=== PATIENT | male | born 1940 | race Caucasian/White ===

== ENCOUNTER 2024-01-12 09:05 | Inpatient (IN) | payer OTHER ==
[~2024-01-12] VITALS: Ht 167.6 cm; Wt 86.2 kg
[2024-01-12 09:12] VITALS: BP 92/37; PULSE 91; RESP 20; TEMP 98.5; O2SAT 95
[2024-01-12] MEDS ORDERED: cefTRIAXone 1,000 MG VIAL ONE (09:46)
[2024-01-12] MEDS: NACL 0.9% 1,000 ML IV SCH ×2 (09:46→18:40)
[2024-01-12 09:49] LABS: HEMATOCRIT 36.9 % (36-52); HEMOGLOBIN 11.9 g/dL (12.0-18.0); MEAN CORPUSCULAR HEMOGLOBIN 27 pg (27-31); MEAN CORPUSCULAR HGB CONC 32 g/dL (33-37); MEAN CORPUSCULAR VOLUME 83.5 fL (80-94); PLATELET COUNT (AUTO) 134 K/uL (140-450); RED BLOOD CELL COUNT(AUTO) 4.42 MIL/uL (4.20-6.10); RED CELL DISTRIBUTION WIDTH 15.4 % (11.6-13.7); WHITE BLOOD COUNT (AUTO) 21.6 K/uL (4.8-10.8)
[2024-01-12] MEDS: cefTRIAXone 1,000 MG in DEXT 5% MINI-BAG PLUS 50 ML IV ONE (09:50)
[2024-01-12 09:58] LABS: ANION GAP 14.8 (8-16); CALCIUM 8.1 mg/dL (8.5-10.1); CARBON DIOXIDE 20.7 mmol/L (21-32); CHLORIDE 102 mmol/L (98-107); CREATININE 2.6 mg/dL (0.6-1.3); GLUCOSE 205 mg/dL (74-106); POTASSIUM 4.5 mmol/L (3.5-5.1); SODIUM SERUM 133 mmol/L (136-145); UREA NITROGEN, BLOOD 42 mg/dL (7-18)
[2024-01-12 10:07] LABS: FLU A ANTIGEN NEGATIVE (NEGATIVE); FLU B ANTIGEN NEGATIVE (NEGATIVE)
[2024-01-12 10:07] LABS: ALANINE AMINOTRANSFERASE 44 U/L (12-78); ALBUMIN 2.4 g/dL (3.4-5.0); ALKALINE PHOSPHATASE 129 U/L (50-136); ASPARTATE AMINOTRANSFERASE 24 U/L (15-37); BILIRUBIN,DIRECT 0.4 mg/dL (0.0-0.3); TOTAL PROTEIN, SERUM 5.7 g/dL (6.4-8.2)
[2024-01-12 10:10] LABS: LACTIC ACID 2.4 mmol/L (0.4-2.0)
[2024-01-12 10:16] LABS: BILIRUBIN,URINE 1+ (NEGATIVE); BLOOD, URINE 3+ (NEGATIVE); COLOR,URINE YELLOW (YELLOW); LEUKOCYTE ESTERASE ,URINE 2+ (NEGATIVE); NITRITE, URINE NEGATIVE (NEGATIVE); PH,URINE 5.5 (5.0-9.0); PROTEIN,URINE 2+ (NEGATIVE); UGLUCOSE NEGATIVE (NEGATIVE)
[2024-01-12 10:24] LABS: APPEARANCE,URINE HAZY (CLEAR)
[2024-01-12 10:29] LABS: BACTERIA,URINE 3+ /HPF (None Seen); ICTOTEST NEGATIVE (NEGATIVE); RBC,URINE 11-20 (MOD) /HPF (0-5); WBC,URINE TOO MANY TO COUNT /HPF (0-5)
[2024-01-12 10:30] LABS: MUCUS,URINE 3+ /LPF (None Seen)
[2024-01-12] MEDS: NACL 0.9% 1,000 ML IV ONE (10:47)
[2024-01-12 11:13] LABS: ANISOCYTOSIS 1+; LYMPHOCYTES % (MANUAL) 4 % (20-46); MONOCYTES % (MANUAL) 2 % (5-12); PLATELET ESTIMATE ADEQUATE; POIKILOCYTOSIS 1+
[2024-01-12 11:14] LABS: BURR CELLS 1+; OVALOCYTES 1+
[2024-01-12] MEDS ORDERED: ROPI2TAB26 PO (11:50)
[2024-01-12] MEDS ORDERED: WARF-92 PO (11:50)
[2024-01-12] MEDS ORDERED: [UNRECOGNIZED DRUG - CODE] PO (11:50)
[2024-01-12] MEDS ORDERED: RIVA15TA1 PO (11:50)
[2024-01-12] MEDS ORDERED: FURO40TA9 PO (11:50)
[2024-01-12] MEDS ORDERED: TAMS0.4C97 PO (11:50)
[2024-01-12] MEDS ORDERED: TRAM50TA3 PO (11:50)
[2024-01-12] MEDS ORDERED: [UNRECOGNIZED DRUG - CODE] OT (11:50)
[2024-01-12] MEDS ORDERED: ISOS60TE70 PO (11:50)
[2024-01-12] MEDS ORDERED: LOVA40TA5 PO (11:50)
[2024-01-12] MEDS ORDERED: TEMA15CA11 PO (11:50)
[2024-01-12] MEDS ORDERED: METO2.5T1 PO (11:50)
[2024-01-12] MEDS ORDERED: INSU-1165 SUBQ (11:50)
[2024-01-12] MEDS ORDERED: TORS20TA3 PO (11:50)
[2024-01-12] MEDS ORDERED: LINA145C PO (11:50)
[2024-01-12] MEDS ORDERED: INSU100S22 SUBQ (11:50)
[2024-01-12] MEDS ORDERED: POTA10TA81 PO (11:50)
[2024-01-12] MEDS ORDERED: CARV12.5 PO (11:56)
[2024-01-12] MEDS ORDERED: COROTSOL OT (11:56)
[2024-01-12] MEDS ORDERED: LACT-58 PO (11:56)
[2024-01-12] MEDS ORDERED: [UNRECOGNIZED DRUG - CODE] PO (11:56)
[2024-01-12] MEDS ORDERED: MULT-2253 PO (11:56)
[2024-01-12] MEDS ORDERED: MULT-2171 PO (11:56)
[2024-01-12 12:14] VITALS: O2SAT 94
[2024-01-12 13:05] VITALS: RESP 18; O2SAT 94
[2024-01-12] MEDS ORDERED: INSULIN LISPRO SLIDING SCALE 100 UNITS/ML VIAL SUBQ PRN (13:40)
[2024-01-12] MEDS ORDERED: DEXTROSE 50% 50 ML SYR IVP PRN ×2 (13:50→18:40)
[2024-01-12 16:00] VITALS: BP 123/68; PULSE 72; RESP 18; TEMP 98.1; O2SAT 97
[2024-01-12] MEDS: BLOOD GLUCOSE MONITORING 1 DEV DEV FS SCH (16:57)
[2024-01-12] MEDS: INSULIN LISPRO SLIDING SCALE 100 UNITS/ML VIAL SUBQ PRN (17:03)
[2024-01-12] MEDS ORDERED: POTASSIUM CHLORIDE 10 MEQ TABER PO PRN (18:40)
[2024-01-12] MEDS ORDERED: MAG SULF 2000 MG/WATER PREMIX 50 ML IV PRN (18:40)
[2024-01-12] MEDS ORDERED: HYDROcodone/APAP 7.5/325 MG 1 TAB PO PRN (18:40)
[2024-01-12] MEDS ORDERED: ONDANSETRON 4 MG/2 ML VIAL IVP PRN (18:40)
[2024-01-12] MEDS ORDERED: ACETAMINOPHEN 325 MG TAB PO PRN (18:40)
[2024-01-12] MEDS ORDERED: traMADol 50 MG TAB PO PRN (18:40)
[2024-01-12 19:31] VITALS: PULSE 76; RESP 21; O2SAT 97
[2024-01-12 19:39] LABS: PARTIAL THROMBOPLASTIN TIME 43.4 secs (22-35.6)
[2024-01-12 19:44] LABS: INR 4.79 (0.8-1.2)
[2024-01-12 20:00] VITALS: BP 165/60; PULSE 76; PULSE 79; RESP 21; TEMP 98.2; O2SAT 97
[2024-01-12 20:08] LABS: FREE T4 (FREE THYROXINE) 1.22 ng/dL (0.76-1.46); THYROID STIMULATING HORMONE 2.48 uIU/mL (0.34-3.74)
[2024-01-12 20:09] LABS: LACTIC ACID 2.4 mmol/L (0.4-2.0)
[2024-01-12] MEDS: DOCUSATE SODIUM 100 MG GELCAP PO SCH (20:38)
[2024-01-12] MEDS: carvediloL 12.5 MG TAB PO SCH (20:38)
[2024-01-12] MEDS: TEMAZEPAM 15 MG CAP PO PRN (21:16)
[2024-01-13] VITALS (7 sets, daily range): BP systolic 99–121; BP diastolic 53–70; PULSE 59–122; RESP 18–24; TEMP 97–98.3; O2SAT 92–97
[2024-01-13] MEDS: BLOOD GLUCOSE MONITORING 1 DEV DEV FS SCH (07:30)
[2024-01-13 07:35] LABS: BASOPHILS # (AUTO) 0.1 K/uL (0.00-0.22); BASOPHILS % (AUTO) 0.2 % (0.0-2.0); EOSINOPHILS % (AUTO) 0.1 % (0.0-4.0); HEMATOCRIT 34.8 % (36-52); HEMOGLOBIN 11.2 g/dL (12.0-18.0); LYMPHOCYTES # (AUTO) 1.1 K/uL (2.0-11.5); LYMPHOCYTES % (AUTO) 4.5 % (20.5-51.1); MEAN CORPUSCULAR HEMOGLOBIN 27 pg (27-31); MEAN CORPUSCULAR HGB CONC 32 g/dL (33-37); MEAN CORPUSCULAR VOLUME 84.2 fL (80-94); MONOCYTES # (AUTO) 1.6 K/uL (0.8-1.0); MONOCYTES % (AUTO) 6.7 % (1.7-9.3); NEUTROPHILS # (AUTO) 20.8 K/uL (1.8-7.7); NEUTROPHILS % (AUTO) 88.5 % (42.2-75.2); PLATELET COUNT (AUTO) 124 K/uL (140-450); RED BLOOD CELL COUNT(AUTO) 4.13 MIL/uL (4.20-6.10); RED CELL DISTRIBUTION WIDTH 15.8 % (11.6-13.7); WHITE BLOOD COUNT (AUTO) 23.6 K/uL (4.8-10.8)
[2024-01-13 07:51] LABS: ANION GAP 13.5 (8-16); CARBON DIOXIDE 21.3 mmol/L (21-32); CHLORIDE 104 mmol/L (98-107); CREATININE 2.5 mg/dL (0.6-1.3); GLUCOSE 140 mg/dL (74-106); POTASSIUM 4.8 mmol/L (3.5-5.1); SODIUM SERUM 134 mmol/L (136-145); UREA NITROGEN, BLOOD 43 mg/dL (7-18)
[2024-01-13 07:58] LABS: MAGNESIUM 1.7 mg/dL (1.8-2.4); PHOSPHORUS 3.3 mg/dL (2.5-4.9)
[2024-01-13] MEDS ORDERED: RIVAROXABAN 15 MG TAB PO SCH (09:00)
[2024-01-13] MEDS ORDERED: TORSEMIDE PO SCH (09:00)
[2024-01-13] MEDS ORDERED: NON-FORMULARY ITEM (Multivitamin (Multi-Vitamin Daily) 1 TAB) PO SCH (09:00)
[2024-01-13] MEDS ORDERED: PREGABALIN PO SCH (09:00)
[2024-01-13] MEDS ORDERED: NON-FORMULARY ITEM (Cholecalciferol (Vitamin D3) (Vitamin D3) 1 CAP) PO SCH (09:00)
[2024-01-13] MEDS ORDERED: LINACLOTIDE PO SCH (09:00)
[2024-01-13] MEDS ORDERED: NON-FORMULARY ITEM (Isosorbide Mononitrate (Isosorbide Mononitrate ER) 1 TAB) PO SCH (09:00)
[2024-01-13] MEDS ORDERED: NON-FORMULARY ITEM (Warfarin Sodium* (Coumadin*) 1 TAB) PO SCH (09:00)
[2024-01-13] MEDS ORDERED: NON-FORMULARY ITEM (Potassium Chloride 1 TAB) PO SCH (09:00)
[2024-01-13] MEDS ORDERED: NON-FORMULARY ITEM (Multivitamin (Multiple Vitamins) 1 TAB) PO SCH (09:00)
[2024-01-13] MEDS ORDERED: NON-FORMULARY ITEM (Lovastatin 1 TAB) PO SCH (09:00)
[2024-01-13 09:01] LABS: INR 4.25 (0.8-1.2); PROTHROMBIN TIME 41.2 secs (10.8-13.4)
[2024-01-13] MEDS: TAMSULOSIN 0.4 MG CAP PO SCH (09:49)
[2024-01-13] MEDS: CHOLECALCIFEROL 1,000 IU TAB PO SCH (09:49)
[2024-01-13] MEDS: rOPINIRole 1 MG TAB PO SCH (09:49)
[2024-01-13] MEDS: ISOSORBIDE MONONITRATE 30 MG TABER PO SCH (09:50)
[2024-01-13] MEDS: MULTIVITAMIN 1 TAB PO SCH (09:50)
[2024-01-13] MEDS: PREGABALIN 50 MG CAP PO SCH (09:50)
[2024-01-13] MEDS: PREGABALIN 25 MG CAP PO SCH (09:50)
[2024-01-13] MEDS: PANTOPRAZOLE 40 MG INJ VIAL IVP SCH (09:51)
[2024-01-13] MEDS: FUROSEMIDE 40 MG TAB PO SCH (09:51)
[2024-01-13] MEDS: metOLazone 2.5 MG TAB PO SCH (09:52)
[2024-01-13] MEDS: INSULIN LISPRO SLIDING SCALE 100 UNITS/ML VIAL SUBQ PRN (12:23)
[2024-01-13] MEDS: MAGNESIUM OXIDE 400 MG TAB PO SCH (16:57)
[2024-01-13] MEDS: MEROPENEM 500 MG VIAL IV ONE (20:46)
[2024-01-13] MEDS: MEROPENEM 500 MG in NACL 0.9% 50 ML IV SCH (21:03)
[2024-01-13] MEDS: SIMVASTATIN 20 MG TAB PO SCH (21:04)
[2024-01-14] VITALS (7 sets, daily range): BP systolic 98–114; BP diastolic 45–54; PULSE 55–76; RESP 17–20; TEMP 96.8–98.7; O2SAT 93–97
[2024-01-14 06:59] LABS: BASOPHILS % (AUTO) 0.1 % (0.0-2.0); EOSINOPHILS # (AUTO) 0.1 K/uL (0-0.4); EOSINOPHILS % (AUTO) 0.4 % (0.0-4.0); HEMATOCRIT 32.7 % (36-52); HEMOGLOBIN 10.7 g/dL (12.0-18.0); LYMPHOCYTES % (AUTO) 4.6 % (20.5-51.1); MEAN CORPUSCULAR HEMOGLOBIN 27 pg (27-31); MEAN CORPUSCULAR HGB CONC 33 g/dL (33-37); MEAN CORPUSCULAR VOLUME 83.5 fL (80-94); MONOCYTES # (AUTO) 1.4 K/uL (0.8-1.0); MONOCYTES % (AUTO) 6.7 % (1.7-9.3); NEUTROPHILS # (AUTO) 18.8 K/uL (1.8-7.7); NEUTROPHILS % (AUTO) 88.2 % (42.2-75.2); PLATELET COUNT (AUTO) 126 K/uL (140-450); RED BLOOD CELL COUNT(AUTO) 3.91 MIL/uL (4.20-6.10); RED CELL DISTRIBUTION WIDTH 15.9 % (11.6-13.7); WHITE BLOOD COUNT (AUTO) 21.4 K/uL (4.8-10.8)
[2024-01-14 07:09] LABS: INR 3.19 (0.8-1.2); PROTHROMBIN TIME 31.4 secs (10.8-13.4)
[2024-01-14 07:12] LABS: ANION GAP 15.5 (8-16); CALCIUM 8.3 mg/dL (8.5-10.1); CHLORIDE 103 mmol/L (98-107); CREATININE 2.5 mg/dL (0.6-1.3); GLUCOSE 159 mg/dL (74-106); POTASSIUM 4.5 mmol/L (3.5-5.1); SODIUM SERUM 133 mmol/L (136-145); UREA NITROGEN, BLOOD 53 mg/dL (7-18)
[2024-01-14 08:01] LABS: MAGNESIUM 1.8 mg/dL (1.8-2.4); PHOSPHORUS 3.7 mg/dL (2.5-4.9)
[2024-01-14] MEDS: RIVAROXABAN 15 MG TAB PO SCH (09:43)
[2024-01-15] VITALS (10 sets, daily range): BP systolic 96–131; BP diastolic 56–70; PULSE 6–84; RESP 17–22; TEMP 97–98.4; O2SAT 94–99
[2024-01-15 06:53] LABS: BASOPHILS % (AUTO) 0.3 % (0.0-2.0); EOSINOPHILS % (AUTO) 0.2 % (0.0-4.0); HEMATOCRIT 32.7 % (36-52); HEMOGLOBIN 10.8 g/dL (12.0-18.0); LYMPHOCYTES # (AUTO) 0.4 K/uL (2.0-11.5); LYMPHOCYTES % (AUTO) 3.3 % (20.5-51.1); MEAN CORPUSCULAR HEMOGLOBIN 28 pg (27-31); MEAN CORPUSCULAR HGB CONC 33 g/dL (33-37); MEAN CORPUSCULAR VOLUME 83.3 fL (80-94); MONOCYTES # (AUTO) 0.5 K/uL (0.8-1.0); MONOCYTES % (AUTO) 5.1 % (1.7-9.3); NEUTROPHILS # (AUTO) 9.6 K/uL (1.8-7.7); NEUTROPHILS % (AUTO) 91.1 % (42.2-75.2); PLATELET COUNT (AUTO) 115 K/uL (140-450); RED BLOOD CELL COUNT(AUTO) 3.93 MIL/uL (4.20-6.10); RED CELL DISTRIBUTION WIDTH 15.5 % (11.6-13.7); WHITE BLOOD COUNT (AUTO) 10.6 K/uL (4.8-10.8)
[2024-01-15 07:16] LABS: ANION GAP 17.1 (8-16); CALCIUM 8.1 mg/dL (8.5-10.1); CARBON DIOXIDE 17.4 mmol/L (21-32); CHLORIDE 101 mmol/L (98-107); GLUCOSE 180 mg/dL (74-106); POTASSIUM 4.5 mmol/L (3.5-5.1); SODIUM SERUM 131 mmol/L (136-145)
[2024-01-15 07:25] LABS: MAGNESIUM 1.7 mg/dL (1.8-2.4); PHOSPHORUS 3.7 mg/dL (2.5-4.9)
[2024-01-15 07:31] LABS: UREA NITROGEN, BLOOD 69 mg/dL (7-18)
[2024-01-15] MEDS: ALBUTEROL SULFATE/IPRATROPIU 3 ML SOL IH PRN (09:09)
[2024-01-15] MEDS: carvediloL 12.5 MG TAB PO SCH (09:31)
[2024-01-15] MEDS ORDERED: ALBUTEROL SULFATE/IPRATROPIU 3 ML SOL IH SCH (13:00)
[2024-01-15] MEDS ORDERED: ALBUTEROL SULFATE/IPRATROPIU 3 ML SOL IH PRN (14:05)
[2024-01-15] MEDS: ALBUTEROL SULFATE/IPRATROPIU 3 ML SOL IH SCH (19:30)
[2024-01-16] VITALS (9 sets, daily range): BP systolic 96–139; BP diastolic 45–70; PULSE 52–71; RESP 14–20; TEMP 97.6–100.9; O2SAT 92–98
[2024-01-16 06:47] LABS: BASOPHILS % (AUTO) 0.4 % (0.0-2.0); EOSINOPHILS % (AUTO) 0.3 % (0.0-4.0); HEMATOCRIT 33.2 % (36-52); HEMOGLOBIN 10.7 g/dL (12.0-18.0); LYMPHOCYTES # (AUTO) 0.3 K/uL (2.0-11.5); LYMPHOCYTES % (AUTO) 4.9 % (20.5-51.1); MEAN CORPUSCULAR HEMOGLOBIN 27 pg (27-31); MEAN CORPUSCULAR HGB CONC 32 g/dL (33-37); MEAN CORPUSCULAR VOLUME 83.3 fL (80-94); MONOCYTES # (AUTO) 0.7 K/uL (0.8-1.0); MONOCYTES % (AUTO) 10.4 % (1.7-9.3); NEUTROPHILS # (AUTO) 5.6 K/uL (1.8-7.7); PLATELET COUNT (AUTO) 113 K/uL (140-450); RED BLOOD CELL COUNT(AUTO) 3.98 MIL/uL (4.20-6.10); WHITE BLOOD COUNT (AUTO) 6.7 K/uL (4.8-10.8)
[2024-01-16 07:14] LABS: MAGNESIUM 2.1 mg/dL (1.8-2.4); PHOSPHORUS 4.3 mg/dL (2.5-4.9)
[2024-01-16 07:18] LABS: ANION GAP 14.6 (8-16); CALCIUM 8.1 mg/dL (8.5-10.1); CARBON DIOXIDE 21.1 mmol/L (21-32); CHLORIDE 102 mmol/L (98-107); GLUCOSE 241 mg/dL (74-106); POTASSIUM 4.7 mmol/L (3.5-5.1); SODIUM SERUM 133 mmol/L (136-145)
[2024-01-16 07:42] LABS: UREA NITROGEN, BLOOD 77 mg/dL (7-18)
[2024-01-16] MEDS ORDERED: MERO500V16 IV (10:35)
[2024-01-16] MEDS ORDERED: SIMV-30 PO (10:35)
[2024-01-16] MEDS ORDERED: ISOS30TE68 PO (10:35)
[2024-01-16] MEDS ORDERED: CARV12.52 PO (10:35)
[2024-01-16] MEDS ORDERED: FOAM DRESSING TP PRN (11:35)
[2024-01-16] MEDS: FOAM DRESSING TP SCH (13:00)
[2024-01-16] MEDS ORDERED: PREGABALIN 50 MG CAP PO SCH (13:25)
[2024-01-16] MEDS: rOPINIRole 1 MG TAB PO SCH (13:35)
== END 2024-01-16 20:35 | DRG 871 ==
LOC: MED 09:05 → MTU 11:24
DX: A41.9 Sepsis, unspecified organism (principal); E43 Unspecified severe protein-calorie malnutrition; G93.41 Metabolic encephalopathy; N17.0 Acute kidney failure with tubular necrosis; N39.0 Urinary tract infection, site not specified; I13.0 Hypertensive heart and chronic kidney disease with heart failure and stage 1 through stage 4 chronic kidney disease, or unspecified chronic kidney disease; Z16.12 Extended spectrum beta lactamase (ESBL) resistance; Z20.822 Contact with and (suspected) exposure to COVID-19; E78.5 Hyperlipidemia, unspecified; F41.9 Anxiety disorder, unspecified; B96.20 Unspecified Escherichia coli [E. coli] as the cause of diseases classified elsewhere; E11.22 Type 2 diabetes mellitus with diabetic chronic kidney disease; N28.1 Cyst of kidney, acquired; E78.00 Pure hypercholesterolemia, unspecified; I25.10 Atherosclerotic heart disease of native coronary artery without angina pectoris; I50.9 Heart failure, unspecified; N18.9 Chronic kidney disease, unspecified; F03.90 Unspecified dementia, unspecified severity, without behavioral disturbance, psychotic disturbance, mood disturbance, and anxiety; N40.1 Benign prostatic hyperplasia with lower urinary tract symptoms; G47.00 Insomnia, unspecified; Z98.61 Coronary angioplasty status; Z79.4 Long term (current) use of insulin; Z79.01 Long term (current) use of anticoagulants; Z79.899 Other long term (current) drug therapy; Z68.30 Body mass index [BMI] 30.0-30.9, adult
CPT/HCPCS: 36415; 71045; 76770; 80048; 80076; 81001; 82140; 82150; 82948; 83036; 83605; 83690; 83735; 83880; 84100; 84439; 84443; 84484; 85025; 85610; 85730; 87040; 87081; 87086; 87186; 93005; 93925; 93970; 94640; 96361; 96365; 97163-GP; 97530; 99285; J0696; J1815; J2185; J2470; J7060; Q0092